=== PATIENT | male | born 1970 | race Two or more races ===

== ENCOUNTER 2024-02-17 17:19 | Emergency (ER) | payer OTHER, SELFPAY ==
[2024-02-17 17:30] VITALS: BP 179/97; PULSE 92; RESP 16; TEMP 36.6; O2SAT 98; BMI 27.8
--- NOTE | 2024-02-17 17:33 | ED_ITS ---
Discharge Plan Disposition Patient Disposition: Home, Self-Care Condition: Good Prescriptions Prescriptions: New amoxicillin-pot clavulanate 875-125 mg tablet 1 tab PO BID Qty: 20 0RF Referrals Follow up/Referrals: Bernardo Kelley MD [Primary Care Provider] - See instructions Activity Restrictions/Add. Instructions Additional Instructions/Restrictions: Continue taking antibiotic till the antibiotic is gone not to your pain is gone. Follow-up with your PCP for no improvement or worsening signs or symptoms as needed. Return to the ER for any worsening signs or symptoms as needed Clinical Impressions Clinical Impression: Suppurative otitis media of left ear Qualifiers: Chronicity: acute Recurrence: non-recurrent Spontaneous tympanic membrane rupture: without spontaneous rupture Qualified Code(s): H66.002 - Acute suppurative otitis media without spontaneous rupture of ear drum, left ear Print Language Print Language: [place] Discharge ED Provider: Marino Patel General Adult HPI <RAVINDRA Blood - Last Filed: 02/17/24 17:42> General Chief complaint: Ear Stated complaint: Ear infection,sore throat,body aches,fever Time Seen by Provider: 02/17/24 17:32 History of Present Illness HPI narrative: Patient presents for 1 week of left ear pain. Patient states that he has been taking [id number] treatment without relief. Patient states that the pain is so bad that he is having difficulty sleeping. He also reports a sore throat but no cough chest pain shortness of breath. Related Data Previous Rx's ?Medication ?Instructions ?Recorded amoxicillin 875 mg-potassium 1 tab PO BID #20 tabs 02/17/24 clavulanate 125 mg tablet Allergies Allergy/AdvReac Type Severity Reaction Status Date / Time No Known Allergies Allergy Verified 07/05/23 10:30 [facility] <RAVINDRA Blood - Last Filed: 02/17/24 17:42> [facility] Disclaimer: The information contained in this section may have been updated after the patient was seen, as this information can be updated by other users. Social History Smoking Status: Never smoker alcohol intake: current alcohol intake frequency: holidays/special occasions only substance use type: denies use current occupational status: employed Travel in the last 8 weeks: Outside the [facility] household members: family housing: house Have you lived/traveled outside [place] in past 30 days?: No Contact w/someone who lives/traveled outside [place] past 30 days?: No Exposure to someone with infectious disease in past 14 days?: No Do you have a fever (greater than 100.4 F or 38 C)?: Yes Have you tested positive for COVID-19: No Exposed to someone with COVID-19 in past 14 days?: No Do you have a sore throat?: Yes Do you have a cough?: No Do you have any weakness?: No Do you have any diarrhea?: No Are you experiencing any unusual bleeding?: No Do you have any muscle aches/pain?: Yes Do you have any abdominal pain?: No Are you experiencing loss of taste or smell?: No <RAVINDAR Blood - Last Filed: 02/17/24 17:42> ROS Obtained: Yes Systems reviewed as appropriate & no additional complaints except as documented Physical Exam <RAVINDRA Blood - Last Filed: 02/17/24 17:42> General General appearance: alert and in no apparent distress ENT ENT exam: Absent normal oropharynx (Patient has an erythematous posterior pharynx without visible exudate) or TM's normal bilaterally (The left tympanic is bulging red with pus behind the eardrum right is normal) Neck Neck exam: Present lymphadenopathy (Left posterior cervical chain) Respiratory Respiratory exam: Present normal lung sounds bilaterally Cardiovascular Cardiovascular exam: Present regular rate and normal rhythm Neurological Exam Neurological exam: Present alert and oriented X3 Medical Decision Making <RAVINDRA Blood - Last Filed: 02/17/24 17:42> Medical Records Screening: Per USPSTF and CDC recommendations, given the prevalence of disease in our region, it is our hospital?s policy to screen for HIV and viral Hepatitis for all patients aged 18 and over and those with ongoing risk factors. Subhash Inquiry Pt receiving controlled substance: No Vital Signs: 02/17/24 17:30 02/17/24 17:39 Temperature 97.9 F 98.3 F Temperature Source Oral Pulse Rate 93 H Pulse Rate [Left Radial] 92 H Respiratory Rate 16 16 Blood Pressure 179/97 H Blood Pressure [Right Arm] 179/97 H Blood Pressure Mean [Right Arm] 124 02 Sat by Pulse Oximetry 98 Oxygen Delivery Method Room Air Orders (Tests/Meds): ED MEDICATIONS Discontinued Medications Generic Name Dose Route Start Last Admin Trade Name Freq PRN Reason Stop Dose Admin Amoxicillin/Clavulanate Potassium 1 each 02/17/24 17:35 02/17/24 17:40 Amoxicillin/Clavulanate Potassium 875/125mg Tablet PO 02/17/24 17:36 1 each ONCE ONE Administration ORDERS Category Date Time Status HIV (1&2) Antibody Rapid Stat Lab 02/17/24 17:37 Ordered Hep C Ab with Reflex to RNA Stat Lab 02/17/24 17:37 Ordered Medical Decision Narrative: In summary patient is a 53-year-old male who presents to the emergency department for evaluation of left ear pain and pharyngitis. Patient is hemodynamically stable upon arrival, afebrile. Physical exam reveals an erythematous bulging left tympanic with purulent effusion. Tympanic is intact. Patient has positive left-sided cervical lymphadenopathy. Differential diagnosis includes viral versus bacterial suppurative otitis media. Initial workup was considered however respiratory swabs and strep swab will not place change roof bolter as I am prescribing antibiotic given the ear findings thus deferred. Initial interventions were considered however patient is afebrile and has been taking [id number] treatments including prior to arrival thus deferred. Given his ear findings we will start the patient on Augmentin and have him follow-up with his PCP within 48 hours for recheck. Patient to take antibiotics until they are gone. Patient given strict return precautions. <Marino Patel MD - Last Filed: 02/17/24 18:57> Vital Signs: 02/17/24 17:30 02/17/24 17:39 Temperature 97.9 F 98.3 F Temperature Source Oral Pulse Rate 93 H Pulse Rate [Left Radial] 92 H Respiratory Rate 16 16 Blood Pressure 179/97 H Blood Pressure [Right Arm] 179/97 H Blood Pressure Mean [Right Arm] 124 02 Sat by Pulse Oximetry 98 Oxygen Delivery Method Room Air Orders (Tests/Meds): ED MEDICATIONS Discontinued Medications Generic Name Dose Route Start Last Admin Trade Name Freq PRN Reason Stop Dose Admin Amoxicillin/Clavulanate Potassium 1 each 02/17/24 17:35 02/17/24 17:40 Amoxicillin/Clavulanate Potassium 875/125mg Tablet PO 02/17/24 17:36 1 each ONCE ONE Administration ORDERS Category Date Time Status HIV (1&2) Antibody Rapid Stat Lab 02/17/24 17:37 Ordered Hep C Ab with Reflex to RNA Stat Lab 02/17/24 17:37 Ordered Medical Decision Narrative: In summary patient is a 53-year-old male who presents to the emergency department for evaluation of left ear pain and pharyngitis. Patient is hemodynamically stable upon arrival, afebrile. Physical exam reveals an erythematous bulging left tympanic with purulent effusion. Tympanic is intact. Patient has positive left-sided cervical lymphadenopathy. Differential diagnosis includes viral versus bacterial suppurative otitis media. Initial workup was considered however respiratory swabs and strep swab will not place change roof bolter as I am prescribing antibiotic given the ear findings thus deferred. Initial interventions were considered however patient is afebrile and has been taking [id number] treatments including prior to arrival thus deferred. Given his ear findings we will start the patient on Augmentin and have him follow-up with his PCP within 48 hours for recheck. Patient to take antibiotics until they are gone. Patient given strict return precautions. I was consulted by the JHONATAN, and we discussed the complexity of the problems being addressed. I approved the treatment and management plan for this patient's care in the Emergency Department, thus performing a substantive portion of the medical decision making. Marino Patel MD Critical Care <RAVINDRA Blood - Last Filed: 02/17/24 17:42> Critical Care Time Critical Care Time: No
[2024-02-17 17:39] VITALS: BP 179/97; PULSE 93; RESP 16; TEMP 36.8; O2SAT 97
[2024-02-17] MEDS: AMOXICILLIN/CLAVULANATE POTASSIUM 875/125MG TABLET 1 EACH PO (17:40)
== END 2024-02-17 17:46 | disposition home or self-care (01) ==
LOC: ER 17:45
PROVIDERS: Emergency Provider Emergency Medicine; PCP Family Medicine
DX: H66.002 Acute suppurative otitis media without spontaneous rupture of ear drum, left ear (principal); H92.02 Otalgia, left ear; J02.9 Acute pharyngitis, unspecified; M79.10 Myalgia, unspecified site; R50.9 Fever, unspecified
CPT/HCPCS: 99283